=== PATIENT | male | born 1980 | race African-American/Black ===

== ENCOUNTER 2016-10-17 23:35 | Emergency (ER) | payer OTHER ==
[~2016-10-17] VITALS: Ht 185.4 cm; Wt 128.4 kg
[2016-10-18] MEDS ORDERED: NITROGLYCERIN 0.4 MG/TAB BOTTLE SL ONE
[2016-10-18] MEDS ORDERED: ASPIRIN 81 MG TAB.CHEW PO ONE
[2016-10-18 00:06] LABS: BASOPHILS % (AUTO) 0.5 % (0.0-2.0); DIFF TOTAL % 100 %; EOSINOPHILS # (AUTO) 0.3 /CMM (0.0-0.7); EOSINOPHILS % (AUTO) 3.7 % (0.0-6.0); HEMATOCRIT 43 % (39-51); HEMOGLOBIN 14.2 g/dL (13.5-17.5); LYMPHOCYTES # (AUTO) 2.4 /CMM (0.8-4.8); MEAN CORPUSCULAR HEMOGLOBIN 26 PG (26.0-33.0); MEAN CORPUSCULAR HGB CONC 33 g/dl (31.0-36.0); MEAN CORPUSCULAR VOLUME 78 fL (80-96); MONOCYTES # (AUTO) 0.6 /CMM (0.1-1.30); MONOCYTES % (AUTO) 8.9 % (2.0-12.0); NEUTROPHILS # (AUTO) 3.5 /CMM (1.8-8.9); NEUTROPHILS % (AUTO) 51.9 % (43.0-81.0); PLATELET COUNT (AUTO) 274 /CMM (150-450); RED BLOOD CELL COUNT(AUTO) 5.55 MIL/uL (4.5-6.0); WHITE BLOOD COUNT (AUTO) 6.8 K/uL (4.3-11.0)
[2016-10-18 00:15] LABS: ANION GAP 12 (5-14); CALCIUM, SERUM 8.4 mg/dL (8.5-10.1); CARBON DIOXIDE 29 mmol/L (21-32); CHLORIDE 105 mmol/L (98-107); CREATININE 1.4 mg/dL (0.6-1.3); GFR 57 mL/min (>60); GLUCOSE 105 mg/dL (74-106); POTASSIUM 3.7 mmol/L (3.5-5.1); SODIUM SERUM 142 mmol/L (136-145); UREA NITROGEN, BLOOD 17 mg/dL (7-18)
[2016-10-18 00:26] LABS: TROPONIN I < 0.017 ng/mL (0.00-0.056)
[2016-10-18 00:29] LABS: INR 0.95 (0.87-1.13); PROTHROMBIN TIME 10.3 SECS (9.5-12.7)
[2016-10-18] MEDS ORDERED: NITROGLYCERIN 0.4 MG/TAB BOTTLE ONE (02:03)
[2016-10-18] MEDS ORDERED: ASPIRIN 81 MG TAB.CHEW ONE (02:03)
[2016-10-18 03:52] VITALS: BP 118/69
== END 2016-10-18 03:54 | disposition home or self-care (01) ==
LOC: ER 23:37
DX: R07.89 Other chest pain (principal); F41.9 Anxiety disorder, unspecified; R20.0 Anesthesia of skin
CPT/HCPCS: 36415; 71010-TC; 80048-TC; 84484-TC; 85025-TC; 85730-TC; A4606; Z7610

== ENCOUNTER 2016-12-22 01:57 | Emergency (ER) | payer SELFPAY ==
[~2016-12-22] VITALS: Ht 190.5 cm; Wt 127.0 kg
[2016-12-22 02:02] VITALS: BP 142/96
== END 2016-12-22 02:27 | disposition home or self-care (01) ==
LOC: ER 02:00
DX: F41.9 Anxiety disorder, unspecified (principal)
CPT/HCPCS: 99281; A4606; Z7610; Z7502

== ENCOUNTER 2020-01-28 07:15 | Emergency (ER) | payer SELFPAY ==
[~2020-01-28] VITALS: Ht 188 cm; Wt 120.2 kg
--- NOTE | 2020-01-28 07:20 | NUR ---
c/o chest pain,non radiating, left arm pain and left leg tingling sensation, on and off x 2 weeks. Patient a/ox4, breathing even and unlabored, no sob noted, needs attended. Dr. sandoval at bedside for eval.
--- NOTE | 2020-01-28 08:32 | NUR ---
Patient discharged to home in stable condition. Written and verbal after care instructions given. Patient verbalizes understanding of instruction.
[2020-01-28 08:34] VITALS: BP 150/100
== END 2020-01-28 08:35 | disposition home or self-care (01) ==
LOC: EDUNIT# 07:15 → ER 07:19
DX: R20.2 Paresthesia of skin (principal); J30.89 Other allergic rhinitis; G89.29 Other chronic pain; M54.9 Dorsalgia, unspecified
CPT/HCPCS: 71045-TC

== ENCOUNTER 2020-06-06 23:17 | Emergency (ER) | payer OTHER ==
[~2020-06-06] VITALS: Ht 190.5 cm; Wt 118.8 kg
--- NOTE | 2020-06-06 23:20 | NUR ---
PT CAME TO THE ER C/O PALPITATIONS AND MIDSTERNAL CHEST PAIN W/ LEFT ARM NUMBMNESS. -SOB -N/V. PT AAOX4, VSS, RESPIRATIONS EVEN AND UNLABORED W/ NAD NOTED. PT CONNECTED TO THE CARDIAC MONTIOR AND POX
--- NOTE | 2020-06-06 23:49 | NUR ---
LINE ESTABLISHED RAC 20G, BLOOD COLLECTED, SENT TO LAB.
[2020-06-06 23:52] LABS: BASOPHILS # (AUTO) 0.1 /CMM (0.0-0.2); BASOPHILS % (AUTO) 1.4 % (0.0-2.0); EOSINOPHILS % (AUTO) 5.5 % (0.0-6.0); HEMATOCRIT 44 % (39-51); HEMOGLOBIN 14.5 g/dL (13.5-17.5); LYMPHOCYTES # (AUTO) 2.2 /CMM (0.8-4.8); LYMPHOCYTES % (AUTO) 39.7 % (20.0-44.0); MEAN CORPUSCULAR HGB CONC 33 g/dl (31.0-36.0); MEAN CORPUSCULAR VOLUME 79 fL (80-96); MONOCYTES # (AUTO) 0.5 /CMM (0.1-1.30); MONOCYTES % (AUTO) 8.6 % (2.0-12.0); NEUTROPHILS # (AUTO) 2.5 /CMM (1.8-8.9); NEUTROPHILS % (AUTO) 44.8 % (43.0-81.0); PLATELET COUNT (AUTO) 235 /CMM (150-450); RED BLOOD CELL COUNT(AUTO) 5.59 MIL/uL (4.5-6.0); WHITE BLOOD COUNT (AUTO) 5.5 K/uL (4.3-11.0)
--- NOTE | 2020-06-06 23:58 | NUR ---
XRAY AT BEDSIDE
[2020-06-07] MEDS ORDERED: IV NS 0.9% 500 ML BAG IV ONE
[2020-06-07 00:04] LABS: CALCIUM, SERUM 8.9 mg/dL (8.5-10.1); CARBON DIOXIDE 28 mmol/L (21-32); CHLORIDE 103 mmol/L (98-107); CREATININE 1.5 mg/dL (0.6-1.3); GLUCOSE 95 mg/dL (74-106); POTASSIUM 3.7 mmol/L (3.5-5.1); SODIUM SERUM 139 mmol/L (136-145); UREA NITROGEN, BLOOD 22 mg/dL (7-18)
[2020-06-07 00:16] LABS: ALANINE AMINOTRANSFERASE 47 U/L (12-78); ALBUMIN 4.1 g/dL (3.4-5.0); ALKALINE PHOSPHATASE 82 U/L (46-116); ASPARTATE AMINOTRANSFERASE 20 U/L (15-37); B-TYPE NATRIURETIC PEPTIDE 26 PG/ML (0-125); BILIRUBIN,DIRECT 0.1 mg/dL (0.0-0.2); BILIRUBIN,TOTAL 0.2 mg/dL (0.2-1.0); TOTAL PROTEIN, SERUM 7.8 g/dL (6.4-8.2)
--- NOTE | 2020-06-07 01:16 | NUR ---
Patient discharged to home in stable condition. Written and verbal after care instructions given. Patient verbalizes understanding of instruction.IV removed. Catheter intact and site benign. Pressure and 4x4 applied to site. No bleeding noted.
[2020-06-07 01:20] VITALS: BP 147/84
== END 2020-06-07 01:20 | disposition home or self-care (01) ==
LOC: ER 23:17
DX: R07.89 Other chest pain (principal); R00.2 Palpitations
CPT/HCPCS: 36415; 71045; 80048; 80076; 83880; 84484; 85025; 85378; 93005 ×2; 99285; J7040

== ENCOUNTER 2020-10-30 01:30 | Emergency (ER) | payer OTHER ==
[~2020-10-30] VITALS: Ht 190.5 cm; Wt 122.5 kg
--- NOTE | 2020-10-30 01:42 | NUR ---
patient came to er bed 2 c/o anxiety. patient states that he has been feeling lower abdominal discomfort, midsternal chest discomfort, and left arm tingling. patient is AAOX4. no sob. breathing evenly and unlabored on room air. connected to the monitor.
[2020-10-30] MEDS ORDERED: LORA-259 PO (01:46)
[2020-10-30] MEDS ORDERED: LORAZEPAM 1 MG TABLET ONE (01:54)
[2020-10-30] MEDS ORDERED: LORAZEPAM 1 MG TABLET PO ONE (02:00)
--- NOTE | 2020-10-30 02:09 | NUR ---
PATIENT CALLED AN UBER TO PICK HIM UP. PATIENT VERBALIZES UNDERSTANDING NOT TO DRIVE UNDER THE INFLUENCE.
--- NOTE | 2020-10-30 02:18 | NUR ---
Patient discharged to home in stable condition. Written and verbal after care instructions given. Patient verbalizes understanding of instruction.
[2020-10-30 02:19] VITALS: BP 114/78
== END 2020-10-30 02:20 | disposition home or self-care (01) ==
LOC: ER 01:32
DX: F41.9 Anxiety disorder, unspecified (principal); R00.2 Palpitations

== ENCOUNTER 2021-03-17 21:01 | Emergency (ER) | payer OTHER ==
[~2021-03-17] VITALS: Ht 190.5 cm; Wt 123.8 kg
[~2021-03-17 21:01] MED LIST: LORA-259 PO
--- NOTE | 2021-03-17 21:08 | NUR ---
called pt to triage room , no answer
--- NOTE | 2021-03-17 21:22 | NUR ---
PT BIBSELF C/O CHEST CONGESTION AND "HEAD HEAVINESS" SINCE HAVING COVID LAST MONTH. PT AAOX4 BREATHING EVENLY AND UNLABORED. PT ATTACHED TO MONITOR AND POX. PT TESTED NEGATIVE 03/08. SKIN IS WARM AND DRY. PA AT BEDSIDE. PT GIVEN CALL LIGHT WITHIN REACH
--- NOTE | 2021-03-17 21:23 | NUR ---
EMT AT BEDSIDE FOR EKG
--- NOTE | 2021-03-17 21:38 | NUR ---
XRAY AT BEDSIDE
[2021-03-17] MEDS ORDERED: ASPIRIN 325 MG TABLET ONE (21:46)
[2021-03-17] MEDS ORDERED: ASPIRIN 325 MG TABLET PO ONE (22:00)
--- NOTE | 2021-03-17 22:06 | NUR ---
BLOOD SENT TO LAB
[2021-03-17 22:07] LABS: BASOPHILS # (AUTO) 0.1 K/uL (0.0-0.2); BASOPHILS % (AUTO) 1.6 % (0.0-2.0); EOSINOPHILS % (AUTO) 3.1 % (0.0-6.0); HEMATOCRIT 43 % (39-51); HEMOGLOBIN 14.4 g/dL (13.5-17.5); LYMPHOCYTES # (AUTO) 2.3 K/uL (0.8-4.8); LYMPHOCYTES % (AUTO) 37.2 % (20.0-44.0); MEAN CORPUSCULAR HGB CONC 34 g/dl (31.0-36.0); MEAN CORPUSCULAR VOLUME 78 fL (80-96); MONOCYTES # (AUTO) 0.5 K/uL (0.1-1.30); MONOCYTES % (AUTO) 8.1 % (2.0-12.0); NEUTROPHILS # (AUTO) 3.1 K/uL (1.8-8.9); PLATELET COUNT (AUTO) 272 K/uL (150-450); RED BLOOD CELL COUNT(AUTO) 5.52 MIL/uL (4.5-6.0); WHITE BLOOD COUNT (AUTO) 6.3 K/uL (4.3-11.0)
[2021-03-17 22:42] LABS: CALCIUM, SERUM 8.8 mg/dL (8.5-10.1); CARBON DIOXIDE 26 mmol/L (21-32); CHLORIDE 105 mmol/L (98-107); CREATININE 1.7 mg/dL (0.6-1.3); GLUCOSE 104 mg/dL (74-106); POTASSIUM 3.9 mmol/L (3.5-5.1); SODIUM SERUM 142 mmol/L (136-145); UREA NITROGEN, BLOOD 21 mg/dL (7-18)
[2021-03-17 22:48] LABS: ALANINE AMINOTRANSFERASE 57 U/L (12-78); ALBUMIN 3.7 g/dL (3.4-5.0); ALKALINE PHOSPHATASE 84 U/L (46-116); ASPARTATE AMINOTRANSFERASE 23 U/L (15-37); BILIRUBIN,DIRECT 0.1 mg/dL (0.0-0.2); BILIRUBIN,TOTAL 0.3 mg/dL (0.2-1.0); TOTAL PROTEIN, SERUM 7.4 g/dL (6.4-8.2)
--- NOTE | 2021-03-17 23:47 | NUR ---
Patient discharged to home in stable condition. Written and verbal after care instructions given. Patient verbalizes understanding of instruction. IV removed. Catheter intact and site benign. Pressure and 4x4 applied to site. No bleeding noted. pT ambulatory with a steady gait
[2021-03-17 23:56] VITALS: BP 133/86
== END 2021-03-17 23:47 | disposition home or self-care (01) ==
LOC: ER 21:02
DX: R07.89 Other chest pain (principal); U07.1 COVID-19; H61.22 Impacted cerumen, left ear; N28.9 Disorder of kidney and ureter, unspecified; R03.0 Elevated blood-pressure reading, without diagnosis of hypertension; Z60.2 Problems related to living alone; Z79.899 Other long term (current) drug therapy
CPT/HCPCS: 36415; 71045-TC; 80048-TC; 80076-TC; 83880; 84484-TC; 85025-TC; 85378-TC

== ENCOUNTER 2021-05-23 05:10 | Emergency (ER) | payer OTHER ==
[~2021-05-23] VITALS: Ht 190.5 cm; Wt 127.0 kg
--- NOTE | 2021-05-23 05:29 | NUR ---
BIBS C/O "FEELS LIKE SOMTHINGS SITTING IN THE MIDDLE OF MY CHEST" XWEEKS. L ARM/LEG TINGLING FEELING & "PALPITATION SOMETIMES". PT ALERT AND ORIENTED X3. AMBULATORY WITH NON LABORED BREATHING.
--- NOTE | 2021-05-23 05:30 | NUR ---
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
[2021-05-23 05:38] LABS: MEAN CORPUSCULAR VOLUME 79 fL (80-96)
[2021-05-23 05:42] LABS: BASOPHILS # (AUTO) 0.1 K/uL (0.0-0.2); BASOPHILS % (AUTO) 1.4 % (0.0-2.0); EOSINOPHILS % (AUTO) 4.4 % (0.0-6.0); HEMATOCRIT 41 % (39-51); HEMOGLOBIN 13.6 g/dL (13.5-17.5); LYMPHOCYTES # (AUTO) 2.7 K/uL (0.8-4.8); LYMPHOCYTES % (AUTO) 44.3 % (20.0-44.0); MEAN CORPUSCULAR HGB CONC 33 g/dl (31.0-36.0); MONOCYTES # (AUTO) 0.5 K/uL (0.1-1.30); MONOCYTES % (AUTO) 7.5 % (2.0-12.0); NEUTROPHILS # (AUTO) 2.6 K/uL (1.8-8.9); NEUTROPHILS % (AUTO) 42.4 % (43.0-81.0); PLATELET COUNT (AUTO) 250 K/uL (150-450); RED BLOOD CELL COUNT(AUTO) 5.22 MIL/uL (4.5-6.0)
[2021-05-23 05:46] LABS: CALCIUM, SERUM 8.9 mg/dL (8.5-10.1); CARBON DIOXIDE 28 mmol/L (21-32); CHLORIDE 106 mmol/L (98-107); CREATININE 1.6 mg/dL (0.6-1.3); GLUCOSE 114 mg/dL (74-106); POTASSIUM 3.7 mmol/L (3.5-5.1); SODIUM SERUM 143 mmol/L (136-145); UREA NITROGEN, BLOOD 18 mg/dL (7-18)
[2021-05-23 05:52] LABS: ALANINE AMINOTRANSFERASE 37 U/L (12-78); ALBUMIN 3.8 g/dL (3.4-5.0); ALKALINE PHOSPHATASE 76 U/L (46-116); ASPARTATE AMINOTRANSFERASE 18 U/L (15-37); BILIRUBIN,DIRECT 0.1 mg/dL (0.0-0.2); BILIRUBIN,TOTAL 0.2 mg/dL (0.2-1.0); TOTAL PROTEIN, SERUM 7.6 g/dL (6.4-8.2)
--- NOTE | 2021-05-23 08:38 | NUR ---
PT RESTING COMFORTABLY IN BED, BREATHING EVEN, DENIES ANY CHEST PAIN.
--- NOTE | 2021-05-23 09:34 | NUR ---
IV removed. Catheter intact and site benign. Pressure and 4x4 applied to site. No bleeding noted.Patient discharged to home in stable condition. Written and verbal after care instructions given. Patient verbalizes understanding of instruction.
[2021-05-23 09:36] VITALS: BP 125/88
== END 2021-05-23 09:36 | disposition home or self-care (01) ==
LOC: ER 05:12
DX: R03.0 Elevated blood-pressure reading, without diagnosis of hypertension (principal); R07.89 Other chest pain; Z88.0 Allergy status to penicillin; Z60.2 Problems related to living alone; Z79.899 Other long term (current) drug therapy
CPT/HCPCS: 36415; 71045-TC; 80048-TC; 80076-TC; 84484-TC; 85025-TC; 85730-TC

== ENCOUNTER 2022-08-07 00:21 | Emergency (ER) | payer OTHER ==
[~2022-08-07] VITALS: Ht 190.5 cm; Wt 131.5 kg
--- NOTE | 2022-08-07 00:57 | NUR ---
BIBS FOR C/O LUE TINGLING SENSATION, POSTERIOR H/A, STUFFY NOSE AND ABDOMINAL DISCOMFORT. PT AO X4. AMBULATORY. ABLE TO MOVE ALL EXTREMITIES. CONNECT TO MONITOR AND PULSE OX.
--- NOTE | 2022-08-07 01:00 | NUR ---
PT SEEN BY DR PYLE
--- NOTE | 2022-08-07 01:25 | NUR ---
SHACTOR AT BEDSIDE
--- NOTE | 2022-08-07 01:30 | NUR ---
[facility]
[2022-08-07 01:47] LABS: CALCIUM, SERUM 8.7 mg/dL (8.5-10.1); CARBON DIOXIDE 27 mmol/L (21-32); CHLORIDE 102 mmol/L (98-107); CREATININE 1.3 mg/dL (0.6-1.3); GLUCOSE 147 mg/dL (74-106); POTASSIUM 3.3 mmol/L (3.5-5.1); SODIUM SERUM 138 mmol/L (136-145); UREA NITROGEN, BLOOD 23 mg/dL (7-18)
[2022-08-07 01:53] LABS: ALANINE AMINOTRANSFERASE 32 U/L (12-78); ALBUMIN 3.8 g/dL (3.4-5.0); ALKALINE PHOSPHATASE 94 U/L (46-116); ASPARTATE AMINOTRANSFERASE 20 U/L (15-37); BILIRUBIN,DIRECT 0.1 mg/dL (0.0-0.2); BILIRUBIN,TOTAL 0.3 mg/dL (0.2-1.0); HEMATOCRIT 44 % (39-51); HEMOGLOBIN 14.7 g/dL (13.5-17.5); MEAN CORPUSCULAR HGB CONC 33 g/dl (31.0-36.0); MEAN CORPUSCULAR VOLUME 78 fL (80-96); PLATELET COUNT (AUTO) 247 K/uL (150-450); TOTAL PROTEIN, SERUM 7.6 g/dL (6.4-8.2); WHITE BLOOD COUNT (AUTO) 5.2 K/uL (4.3-11.0)
[2022-08-07 03:39] LABS: BASOPHILS % (MANUAL) 0 % (0.0-2.0); EOSINOPHILS % (MANUAL) 3 % (0-4); LYMPHOCYTES % (MANUAL) 43 % (16-48); MONOCYTES % (MANUAL) 7 % (0-11.0); NEUTROPHILS % (MANUAL) 47 (42-76)
[2022-08-07] MEDS ORDERED: DOCU-141 PO (04:22)
[2022-08-07] MEDS ORDERED: POLY17PO4 PO (04:22)
--- NOTE | 2022-08-07 04:30 | NUR ---
PT DC TO HOME. DC INSTRUCTIONS GIVEN, VERBALIZES UNDERSTANDING.
[2022-08-07 04:31] VITALS: BP 150/87
== END 2022-08-07 04:32 | disposition home or self-care (01) ==
LOC: ER 00:24
DX: F41.9 Anxiety disorder, unspecified (principal); R20.2 Paresthesia of skin; K59.00 Constipation, unspecified; I10 Essential (primary) hypertension; Z86.16 Personal history of COVID-19; Z88.0 Allergy status to penicillin; Z60.2 Problems related to living alone
CPT/HCPCS: 36415; 71045-TC; 80048-TC; 80076-TC; 84484-TC; 85025-TC

== ENCOUNTER 2024-12-23 03:02 | Emergency (ER) | payer OTHER ==
[~2024-12-23] VITALS: Ht 190.5 cm; Wt 127.5 kg
[~2024-12-23 03:02] MED LIST changes: +DOCU-141 PO; +POLY17PO4 PO
[2024-12-23 03:42] VITALS: BP 126/83; TEMP 98.4; O2SAT 97
[2024-12-23] MEDS ORDERED: TETRAcaine 5 ML BOTTLE ONE (03:50)
[2024-12-23] MEDS ORDERED: FLUORESCEIN SODIUM OPHTH 1 EA STRIP ONE ×2 (03:50)
[2024-12-23] MEDS: FLUORESCEIN SODIUM OPHTH 1 EA STRIP OP ONE (03:56)
[2024-12-23] MEDS: TETRAcaine 5 ML BOTTLE EACHEYE ONE (03:56)
== END 2024-12-23 04:02 | disposition home or self-care (01) ==
LOC: ER 03:09
DX: H10.213 Acute toxic conjunctivitis, bilateral (principal); I10 Essential (primary) hypertension; Z86.16 Personal history of COVID-19; Z88.0 Allergy status to penicillin; Z60.2 Problems related to living alone; Z79.899 Other long term (current) drug therapy

== ENCOUNTER 2025-04-26 05:12 | Emergency (ER) | payer OTHER ==
[~2025-04-26] VITALS: Ht 190.5 cm; Wt 129.3 kg
[2025-04-26] MEDS ORDERED: LIDOCAINE VISCOUS 2% UD 15 ML UDC ONE (06:35)
[2025-04-26] MEDS ORDERED: MAG HYDROX/AL HYDROX/SIMETH 30 ML UDC ONE (06:35)
[2025-04-26] MEDS ORDERED: FAMOTIDINE (20 MG) 20 MG TABLET ONE (06:36)
[2025-04-26] MEDS: FAMOTIDINE (20 MG) 20 MG TABLET PO ONE (06:41)
[2025-04-26] MEDS: MAG HYDROX/AL HYDROX/SIMETH 30 ML UDC PO ONE (06:41)
[2025-04-26] MEDS: LIDOCAINE VISCOUS 2% UD 15 ML UDC MM ONE (06:41)
[2025-04-26 06:48] LABS: PLATELET COUNT (AUTO) 276 K/uL (150-450); RED BLOOD CELL COUNT(AUTO) 5.59 MIL/uL (4.5-6.0); RED CELL DISTRIBUTION WIDTH 14.4 % (11.5-15.0); WHITE BLOOD COUNT (AUTO) 5.8 K/uL (4.3-11.0)
[2025-04-26 06:59] LABS: ASPARTATE AMINOTRANSFERASE 17.0 U/L (15-37); CALCIUM, SERUM 8.8 mg/dL (8.5-10.1); CREATININE 1.3 mg/dL (0.6-1.3); SODIUM SERUM 141.0 mmol/L (136-145); TOTAL PROTEIN, SERUM 7.6 g/dL (6.4-8.2); UREA NITROGEN, BLOOD 14.0 mg/dL (7-18)
[2025-04-26] MEDS ORDERED: PANT20TA2 PO (07:44)
[2025-04-26 08:23] VITALS: BP 135/81; TEMP 98.1; O2SAT 97
== END 2025-04-26 08:23 | disposition home or self-care (01) ==
LOC: ER 05:14
DX: R07.89 Other chest pain (principal); R10.13 Epigastric pain; R06.02 Shortness of breath; M79.10 Myalgia, unspecified site; I10 Essential (primary) hypertension; Z79.899 Other long term (current) drug therapy; Z86.16 Personal history of COVID-19; Z88.0 Allergy status to penicillin; Z60.2 Problems related to living alone
CPT/HCPCS: 36415; 71045-TC; 80048-TC; 80076-TC; 83690-TC; 84484-TC; 85025-TC